=== PATIENT | male | born 1935 | race Caucasian/White ===

== ENCOUNTER → 2018-03-10 | Outpatient (CLI) | payer MEDICARE, BC ==
[~2018-03-10] MED LIST: LOSA25TA5 PO; MELO15TA24 PO; METO25TA91 PO; TRIA1TAB3 PO
[2018-03-10 14:09] LABS: BASOPHILS # (AUTO) 0.03 x10^3/uL (0-0.1); BASOPHILS % (AUTO) 1 % (0-1); EOSINOPHILS % (AUTO) 2 % (1-7); LYMPHOCYTES # (AUTO) 1.86 x10^3/uL (1-3.4); LYMPHOCYTES % (AUTO) 29 % (22-44); MD NO; MEAN CORPUSCULAR HEMOGLOBIN 30.9 pg (27.5-34.5); MEAN CORPUSCULAR HGB CONC 33.6 g/dL (33.2-36.2); MEAN CORPUSCULAR VOLUME 91.8 fL (81-97); MEAN PLATELET VOLUME 9.2 fL (7.4-10.4); MONOCYTES % (AUTO) 11 % (2-9); NEUTROPHILS # (AUTO) 3.64 x10^3/uL (1.8-6.8); NEUTROPHILS % (AUTO) 58 % (42-75); PLATELET COUNT 240 x10^3/uL (130-400); RED BLOOD COUNT 5.25 x10^6/uL (4.38-5.82); RED CELL DISTRIBUTION WIDTH 14.5 % (9.4-14.8)
[2018-03-10 14:15] LABS: INTERNATIONAL NORMALIZED RATIO 1.04 (0.93-1.1); PROTHROMBIN TIME 10.7 Seconds (9.6-11.5)
[2018-03-10 14:17] LABS: ANION GAP 7 mmol/L (5-15); CALCIUM 8.7 mg/dL (8.5-10.1); CHLORIDE 104 mmol/L (98-107)
[2018-03-10 14:20] LABS: ALANINE AMINOTRANSFERASE 35 U/L (12-78); ALKALINE PHOSPHATASE 47 U/L (45-117); BILIRUBIN,TOTAL 0.6 mg/dL (0.2-1.0); CREATININE 1.12 mg/dL (0.7-1.3); TOTAL PROTEIN 7.5 g/dL (6.4-8.2)
[2018-03-10 14:29] LABS: MICROSCOPIC NOT IND
[2018-03-10 14:30] LABS: CULTURE INDICATED? NO
== END | disposition home or self-care (01) ==
LOC: STAR 12:44
PROVIDERS: ATTEND Neurological Surgery
DX: Z01.818 Encounter for other preprocedural examination (principal); I45.10 Unspecified right bundle-branch block; M51.36 Other intervertebral disc degeneration, lumbar region; J84.10 Pulmonary fibrosis, unspecified
CPT/HCPCS: 36415; 71046; 72114; 80053; 81003; 85025; 85610; 85730; 93005

== ENCOUNTER 2018-03-19 06:02 | Inpatient (IN) | payer MEDICARE, BC ==
[2018-03-10 13:23] VITALS: BP 167/94
[~2018-03-19] VITALS: Ht 180.3 cm; Wt 107.0 kg
[2018-03-19] MEDS ORDERED: LACTATED RINGERS 1,000 ML IV SCH (06:45)
[2018-03-19] MEDS ORDERED: BUPIVACAINE/PF 0.5% ONE (06:53)
[2018-03-19] MEDS ORDERED: THROMBIN 5,000 UNIT VIAL TP ONE (06:53)
[2018-03-19] MEDS ORDERED: EPINEPHRINE 1 MG/ML, 1ML ONE (06:54)
[2018-03-19] MEDS ORDERED: BACITRACIN 50,000 UNIT ONE (06:54)
[2018-03-19] MEDS ORDERED: FENTANYL PF 250 MCG/5ML ONE (08:44)
[2018-03-19] MEDS ORDERED: OxyconTIN ER 10 MG TAB.ER PO ONE (09:00)
[2018-03-19] MEDS ORDERED: GABAPENTIN 300 MG CAPSULE PO ONE (09:00)
[2018-03-19] MEDS ORDERED: ACETAMINOPHEN 500 MG TABLET PO ONE (09:00)
[2018-03-19] MEDS ORDERED: hydrALAzine 20 MG/ML, 1ML IV PRN (10:30)
[2018-03-19] MEDS ORDERED: FENTANYL PF 100 MCG/2ML ONE ×2 (10:30→11:37)
[2018-03-19] MEDS ORDERED: PROMETHAZINE 25 MG/ML, 1ML IV PRN (10:30)
[2018-03-19] MEDS ORDERED: OXYcodone 5 MG/5 ML ORAL.SOL UDC PO PRN (10:30)
[2018-03-19] MEDS ORDERED: HYDROmorphone 1 MG/ML, 1ML IV PRN (10:30)
[2018-03-19] MEDS ORDERED: ALBUTEROL SULFATE 2.5 MG/3 ML NPPB PRN (10:30)
[2018-03-19] MEDS ORDERED: LABETALOL 5MG/ML, 20ML IV PRN ×2 (10:30→14:00)
[2018-03-19] MEDS: FENTANYL PF 100 MCG/2ML IV PRN ×3 (11:39→12:08)
[2018-03-19] MEDS ORDERED: CYCLOBENZAPRINE 10 MG TABLET ONE (11:45)
[2018-03-19] MEDS ORDERED: HYDROmorphone 2 MG/ML, 1ML ONE (11:56)
[2018-03-19] MEDS ORDERED: CYCLOBENZAPRINE 10 MG TABLET PO PRN ×2 (12:00→14:00)
[2018-03-19 13:57] VITALS: BP 159/95
[2018-03-19] MEDS ORDERED: DIPHENHYDRAMINE 50 MG CAPSULE PO PRN (14:00)
[2018-03-19] MEDS ORDERED: BISACODYL 10 MG SUPP PR PRN (14:00)
[2018-03-19] MEDS ORDERED: PROMETHAZINE 25 MG/ML, 1ML IM PRN (14:00)
[2018-03-19] MEDS ORDERED: MAGNESIUM HYDROXIDE 8%, 30ML UDC PO PRN (14:00)
[2018-03-19] MEDS ORDERED: morphine SULFATE 10 MG/ML, 1ML IV PRN (14:00)
[2018-03-19] MEDS ORDERED: ONDANSETRON 2MG/ML, 2ML IV PRN (14:00)
[2018-03-19] MEDS ORDERED: OXYcodone/APAP 5/325MG TABLET PO PRN (14:00)
[2018-03-19] MEDS: D5%-0.9% NACL+KCL 20MEQ 1,000 ML IV SCH (14:39)
[2018-03-19] MEDS ORDERED: SUCCINYLCHOLINE 20 MG/ML, 10ML ONE (15:40)
[2018-03-19] MEDS ORDERED: ONDANSETRON 2MG/ML, 2ML ONE (15:40)
[2018-03-19] MEDS ORDERED: CEFAZOLIN 1,000 MG ONE (15:40)
[2018-03-19] MEDS ORDERED: METOPROLOL 1 MG/ML, 5ML ONE (15:40)
[2018-03-19] MEDS ORDERED: PROPOFOL 10 MG/ML, 20ML ONE (15:40)
[2018-03-19] MEDS ORDERED: DEXAMETHASONE 4 MG/ML, 1ML ONE (15:40)
[2018-03-19] MEDS: CEFAZOLIN PMX 1GM/50ML 50 ML IVPB SCH (17:26)
[2018-03-19 19:04] VITALS: BP 148/83
[2018-03-19] MEDS: HYDROcodone/APAP 10/325 MG TABLET PO PRN (23:40)
[2018-03-19 23:44] VITALS: BP 144/86
[2018-03-20] MEDS: CEFAZOLIN PMX 1GM/50ML 50 ML IVPB SCH ×3 (01:20→18:01)
[2018-03-20 03:22] VITALS: BP 146/89
[2018-03-20] MEDS: D5%-0.9% NACL+KCL 20MEQ 1,000 ML IV SCH ×3 (03:26→18:02)
[2018-03-20] MEDS: HYDROcodone/APAP 10/325 MG TABLET PO PRN ×4 (05:20→22:51)
[2018-03-20 07:20] VITALS: BP 151/77
[2018-03-20] MEDS: ENOXAPARIN 40 MG/0.4 ML SQ SCH (08:59)
[2018-03-20] MEDS: SENNA/DOCUSATE TABLET PO SCH (09:00)
[2018-03-20] MEDS ORDERED: CYCL5TAB PO (10:37)
[2018-03-20] MEDS ORDERED: HYDR-3307 PO (10:37)
[2018-03-20] MEDS ORDERED: CEPHALEXIN 500 MG CAPSULE PO PRN (15:00)
[2018-03-20 16:05] VITALS: BP 159/80
[2018-03-20 19:25] VITALS: BP 150/80
[2018-03-21 01:32] VITALS: BP 145/87
[2018-03-21] MEDS: CEFAZOLIN PMX 1GM/50ML 50 ML IVPB SCH ×3 (01:39→17:34)
[2018-03-21] MEDS: HYDROcodone/APAP 10/325 MG TABLET PO PRN ×5 (04:16→23:35)
[2018-03-21] MEDS: D5%-0.9% NACL+KCL 20MEQ 1,000 ML IV SCH ×2 (05:27→17:59)
[2018-03-21 07:08] VITALS: BP 163/79
[2018-03-21] MEDS: SENNA/DOCUSATE TABLET PO SCH (07:26)
[2018-03-21 07:35] VITALS: BP 136/75
[2018-03-21] MEDS: ENOXAPARIN 40 MG/0.4 ML SQ SCH (10:10)
[2018-03-21 13:31] VITALS: BP 152/79
[2018-03-21] MEDS: CYCLOBENZAPRINE 10 MG TABLET PO SCH ×2 (14:54→22:55)
[2018-03-21 19:22] VITALS: BP 153/81
[2018-03-22 01:11] VITALS: BP 145/73
[2018-03-22] MEDS: CEFAZOLIN PMX 1GM/50ML 50 ML IVPB SCH ×2 (01:13→08:47)
[2018-03-22] MEDS: D5%-0.9% NACL+KCL 20MEQ 1,000 ML IV SCH (03:59)
[2018-03-22] MEDS: CYCLOBENZAPRINE 10 MG TABLET PO SCH (06:11)
[2018-03-22] MEDS: ENOXAPARIN 40 MG/0.4 ML SQ SCH (08:47)
[2018-03-22] MEDS: SENNA/DOCUSATE TABLET PO SCH (08:47)
[2018-03-22] MEDS: HYDROcodone/APAP 10/325 MG TABLET PO PRN (08:57)
[2018-03-22 08:58] VITALS: BP 141/88
== END 2018-03-22 09:35 | disposition home or self-care (01) | DRG 517 ==
LOC: ORIP 06:02 → 4NOR 13:07
PROVIDERS: ADMIT Neurological Surgery; ATTEND Neurological Surgery
PROC: 01NB0ZZ Release Lumbar Nerve, Open Approach (ICD-10-PCS; principal; 2018-03-22)
DX: M48.062 Spinal stenosis, lumbar region with neurogenic claudication (principal); M71.38 Other bursal cyst, other site; M54.16 Radiculopathy, lumbar region
CPT/HCPCS: 72100; J0171; J0690; J1100; J1170; J1650; J2405; J2704; J3010; J3490; J0330; J3480; J7120